=== PATIENT | female | born 1930 | race Caucasian/White ===

== ENCOUNTER 2017-01-13 13:37 | Inpatient (IN) | payer OTHER ==
[~2017-01-13] VITALS: Ht 170.2 cm; Wt 65.0 kg
[~2017-01-13 13:37] MED LIST: ALPRAZOLAM0.25 MG PO; AMBIEN5 MG PO; ASPIRIN325 MG PO; Ambien PO; BETHANECHOL CHL25 MG PO; Bactrim,Septra DS 80 PO; CIPROFLOXACIN250 MG PO; DETROL LA4 MG PO; DUONEB 2.5-0.5 M3 ML AEROSOL; ENDOCET 10-3251 EACH PO; ENDOCET 5-3251 EACH PO; GLUCOPHAGE1000 MG PO; HEPARIN SO5000 UNITS SC; KLONOPIN0.5 M1 PO; LAXATIVE PEG 3510 GM PO; LISINOPRIL2.5 MG PO; LOPRESSOR25 MG PO; MAGIC MOUTHWASH1 ML MM; METFORMIN HCL1000 MG PO; METRONIDAZOLE500 MG PO; MIRALAX17 GM PO; NOVOLOG PE100 UNITS/ SC; OXYCODONE-APAP1 EACH PO; PERCOCET 10-321 EACH PO; PERCOCET 10/1 TABLET PO; PERCOCET 5/31 TABLET PO; POLYETHYLENE GL17 GM PO; TYLENOL REGULA325 MG PO; VITAMIN D250000 UNIT PO; XANAX0.5 MG PO; XANAX2 MG PO; Xanax PO; ZOFRAN4 MG PO
[2017-01-13 13:52] LABS: BASE EXCESS -4.6 mEq/L (-3 to +3); BICARBONATE 18.8 mEq/L (22-26); CARBOXY HGB 1.2 % (0-5); COMMENTS - BLOOD GASES A+C+; DEVICE NC; METHEMOGLOBIN 0.8 % (0-1.5); O2 FLOW 6 L/MIN; PCO2 29 mm Hg (35-45); PO2 39 mm Hg (80-100); SITE LR; pH 7.42 (7.35-7.45)
[2017-01-13 14:39] LABS: BASE EXCESS -5.4 mEq/L (-3 to +3); BICARBONATE 18.9 mEq/L (22-26); CARBOXY HGB 1.2 % (0-5); COMMENTS - BLOOD GASES A+C+; DEVICE NRBM; METHEMOGLOBIN 0.8 % (0-1.5); O2 FLOW 15 L/MIN; PCO2 32 mm Hg (35-45); PO2 71 mm Hg (80-100); SITE LR; pH 7.38 (7.35-7.45)
[2017-01-13 14:40] LABS: TOTAL RESP RATE 14 resp/min
[2017-01-13 14:52] LABS: ADD MIUA? NO; BILIRUBIN NEGATIVE; BLOOD NEGATIVE; COLOR YELLOW ((YELLOW)); GLUCOSE (STRIP) NEGATIVE; KETONES NEGATIVE; LEUKOCYTES NEGATIVE; NITRITE NEGATIVE; PROTEIN (STRIP) NEGATIVE; SPECIFIC GRAVITY 1.008 (1.000-1.030); UROBILINOGEN 0.2 MG/DL (0.2-1.0)
[2017-01-13 15:00] LABS: AMPHETAMINE NEGATIVE (500 ng/mL); BARBITURATES NEGATIVE (200 ng/mL); BENZODIAZEPINES PRESUMPTIVE POSITIVE (150 ng/mL); COCAINE NEGATIVE (150 ng/mL); INTERNAL CONTROLS VALID? YES; METHADONE NEGATIVE (200 ng/mL); METHAMPHETAMINE NEGATIVE (500 ng/mL); OPIATES (MORPHINE) PRESUMPTIVE POSITIVE (100 ng/mL); OXYCODONE PRESUMPTIVE POSITIVE (100 ng/mL); PHENCYCLIDINE NEGATIVE (25 ng/mL); PROPOXYPHENE NEGATIVE (300 ng/mL); THC CANNABINOIDS NEGATIVE (50 ng/mL); TRICYCLIC ANTIDEPRESSANTS PRESUMPTIVE POSITIVE (300 ng/mL)
[2017-01-13 15:01] LABS: ADD MEDTOX COMMENT Y
[2017-01-13 15:22] LABS: HEMATOCRIT 32.8 % (36.0-46.0); MCHC 31.4 G/DL (30.0-36.0); MCV 95.6 FL (83-99); RBC DIS.WIDTH-SD 49.6 % (39-53); RED BLOOD COUNT 3.43 M/uL (3.80-5.20); WHITE BLOOD COUNT 3.4 K/uL (4.1-10.2)
[2017-01-13 15:22] LABS: BENZODIAZEPINES, URINE SCREEN POSITIVE (200 ng/mL)
[2017-01-13 15:26] LABS: CHLORIDE 108 mEq/L (99-109); INTER. NORMALIZED RATIO 1.2; POTASSIUM 3.9 mEq/L (3.7-5.4); PROTHROMBIN TIME 12.3 (9.2-11.2); PTT 33.1 (25-32); SODIUM 142 mEq/L (136-147)
[2017-01-13 15:27] LABS: MAGNESIUM 1.1 mg/dL (1.3-2.7)
[2017-01-13 15:28] LABS: GLUCOSE 172 mg/dL (70-99)
[2017-01-13 15:30] LABS: ANION GAP 14 MEQ/L (2-14)
[2017-01-13 15:31] LABS: SERUM ETHYL ALCOHOL < 10 mg/dL
[2017-01-13 15:32] LABS: GFR ESTIMATE (CALCULATED) 30 mL/min/
[2017-01-13 15:34] LABS: UREA NITROGEN (BUN) 23 mg/dL (9-23)
[2017-01-13 15:35] LABS: SALICYLATE < 5.0 MG/DL (15-30)
[2017-01-13 15:37] LABS: TROP-I INTERPRETATION NEGATIVE; TROPONIN-I 0.08 ng/mL (0.0-0.30)
[2017-01-13] MEDS ORDERED: AMBIEN5 MG PO (16:09)
[2017-01-13] MEDS ORDERED: COZAAR100 MG PO (16:10)
[2017-01-13] MEDS ORDERED: REMERON30 M2 PO (16:10)
[2017-01-13 16:25] LABS: MEAN PLAT.VOLUME ND uM^3 (9.5-12.4); PLATELET COUNT ND K/uL (156-360)
[2017-01-13 16:34] LABS: ABS NEUTROPHIL COUNT 2.8; ANISOCYTOSIS 1+; BAND NEUTROPHILS 58.4 % (0-8.0); BASOPHILS 0.9 %; EOSINOPHIL ABS CT 0; HYPOCHROMASIA 1+; INSTRUMENT ABS NEUTROPHIL CT 2.6 K/uL; METAMYELOCYTES 3.5 %; PLATELET CLUMPS PRESENT - PLATELET COUNT APPEARS ADQ.; SEG.NEUTROPHILS 23.9 % (46.0-76.0); SMUDGE CELLS 8.8
[2017-01-13 18:20] VITALS: BP 109/64
[2017-01-13 19:00] VITALS: BP 102/58
[2017-01-13 20:00] VITALS: BP 109/60
[2017-01-13 20:06] LABS: METH RESISTANT S AUREUS PCR NEGATIVE (NEGATIVE)
[2017-01-13 20:11] LABS: PROBE CHECK PASS; SPECIMEN PROCESSING CONTROL PASS
[2017-01-13 21:00] VITALS: BP 134/70
[2017-01-13 22:00] VITALS: BP 119/68
[2017-01-13 23:00] VITALS: BP 104/50
[2017-01-14] VITALS (12 sets, daily range): BP systolic 76–127; BP diastolic 40–59
[2017-01-14 05:38] LABS: MCH 30.3 PG (29.0-34.0); MCV 94.6 FL (83-99); PLATELET COUNT 124 K/uL (156-360); RBC DIS.WIDTH-CV 14.3 % (11.8-14.6); RBC DIS.WIDTH-SD 49.8 % (39-53); RED BLOOD COUNT 3.17 M/uL (3.80-5.20); WHITE BLOOD COUNT 6.7 K/uL (4.1-10.2)
[2017-01-14 05:45] LABS: INTER. NORMALIZED RATIO 1.6; PROTHROMBIN TIME 16.2 (9.2-11.2)
[2017-01-14 06:07] LABS: ALKALINE PHOSPHATASE 55 IU/L (3-129); ANION GAP 10 MEQ/L (2-14); CHLORIDE 113 MEQ/L (99-109); GFR ESTIMATE (CALCULATED) 41 mL/min/; POTASSIUM 4.3 MEQ/L (3.7-5.4); SAMPLE HEMOLYSIS CHECK 0; SAMPLE ICTERIC CHECK 0; SAMPLE LIPEMIA CHECK 0; SODIUM 142 MEQ/L (136-147); TOTAL BILIRUBIN 0.5 MG/DL (0.0-1.0); UREA NITROGEN (BUN) 26 mg/dL (9-23)
[2017-01-14 06:09] LABS: GLUCOSE 107 mg/dL (70-99)
[2017-01-15] VITALS: BP 113/56
[2017-01-15 04:00] VITALS: BP 94/53
[2017-01-15 08:00] VITALS: BP 109/57
[2017-01-15 11:36] LABS: HEMATOCRIT 33.2 % (36.0-46.0); MCH 30.2 PG (29.0-34.0); MCHC 32.2 G/DL (30.0-36.0); MCV 93.8 FL (83-99); MEAN PLAT.VOLUME 11.6 uM^3 (9.5-12.4); PLATELET COUNT 114 K/uL (156-360); RBC DIS.WIDTH-CV 14.8 % (11.8-14.6); RBC DIS.WIDTH-SD 51.7 % (39-53); RED BLOOD COUNT 3.54 M/uL (3.80-5.20); WHITE BLOOD COUNT 18.1 K/uL (4.1-10.2)
[2017-01-15 11:50] LABS: C DIFF TOXIN POSITIVE (NEGATIVE)
[2017-01-15 11:52] LABS: ANION GAP 12 MEQ/L (2-14); CHLORIDE 114 MEQ/L (99-109); MAGNESIUM 2.1 mg/dl (1.3-2.7); POTASSIUM 3.5 MEQ/L (3.7-5.4); SAMPLE HEMOLYSIS CHECK 0; SAMPLE ICTERIC CHECK 0; SAMPLE LIPEMIA CHECK 0; SODIUM 143 MEQ/L (136-147)
[2017-01-15 11:58] LABS: GFR ESTIMATE (CALCULATED) > 59 mL/min/; GLUCOSE 145 mg/dL (70-99); UREA NITROGEN (BUN) 20 mg/dL (9-23)
[2017-01-15 11:59] LABS: PROBE CHECK PASS; SPECIMEN PROCESSING CONTROL PASS
[2017-01-15 12:00] VITALS: BP 121/62
[2017-01-15 13:00] VITALS: BP 121/62
[2017-01-15 13:08] LABS: ABS NEUTROPHIL COUNT 16.6; ANISOCYTOSIS 1+; BASOPHILS 0.9 %; BURR CELLS 1+; EOSINOPHIL ABS CT 0; INSTRUMENT ABS NEUTROPHIL CT 16.9 K/uL; LYMPHOCYTES 1.8 % (15.0-45.0); PLAT.SUFFICIENCY DECREASED; POIKILOCYTOSIS 2+; TEAR DROP CELLS 1+
[2017-01-15 13:20] LABS: BAND NEUTROPHILS 13.6 % (0-8.0); SEG.NEUTROPHILS 78.2 % (46.0-76.0)
[2017-01-15 16:00] VITALS: BP 126/69
[2017-01-16] VITALS (14 sets, daily range): BP systolic 125–162; BP diastolic 62–80
[2017-01-16 05:56] LABS: HEMATOCRIT 28.2 % (36.0-46.0); MCHC 34.4 G/DL (30.0-36.0); MCV 90.1 FL (83-99); MEAN PLAT.VOLUME 12.2 uM^3 (9.5-12.4); NRBC (%) 0.2 /100 WBC (0-0); PLATELET COUNT 110 K/uL (156-360); RBC DIS.WIDTH-CV 14.9 % (11.8-14.6); RBC DIS.WIDTH-SD 48.6 % (39-53); RED BLOOD COUNT 3.13 M/uL (3.80-5.20); WHITE BLOOD COUNT 13.8 K/uL (4.1-10.2)
[2017-01-16 06:29] LABS: ANION GAP 10 MEQ/L (2-14); CHLORIDE 114 MEQ/L (99-109); GFR ESTIMATE (CALCULATED) > 59 mL/min/; GLUCOSE 388 mg/dL (70-99); MAGNESIUM 1.9 mg/dl (1.3-2.7); POTASSIUM 3.4 MEQ/L (3.7-5.4); SAMPLE HEMOLYSIS CHECK 0; SAMPLE ICTERIC CHECK 0; SAMPLE LIPEMIA CHECK 0; SODIUM 140 MEQ/L (136-147); UREA NITROGEN (BUN) 25 mg/dL (9-23)
[2017-01-16 07:04] LABS: EOSINOPHIL (%) 0.1 % (0-5); IMMATURE GRANULOCYTE COUNT 0.1 K/uL; INSTRUMENT ABS NEUTROPHIL CT 12.5 K/uL; LYMPHOCYTE COUNT 0.4 K/uL (1.0-2.8); MONOCYTE (%) 5.2 % (3-12); MONOCYTE COUNT 0.7 K/uL (0-0.8); NEUTROPHIL (%) 90.6 % (45-76); NEUTROPHIL COUNT 12.5 K/uL (1.8-6.4)
[2017-01-16 22:02] LABS: POINT-OF-CARE METER ID UU14174217
[2017-01-17] VITALS (22 sets, daily range): BP systolic 104–161; BP diastolic 52–93
[2017-01-17 00:54] LABS: POINT-OF-CARE METER ID UU14174217
[2017-01-17 05:54] LABS: ANION GAP 12 MEQ/L (2-14); CHLORIDE 111 MEQ/L (99-109); GFR ESTIMATE (CALCULATED) > 59 mL/min/; GLUCOSE 249 mg/dL (70-99); MAGNESIUM 1.9 mg/dl (1.3-2.7); POTASSIUM 2.9 MEQ/L (3.7-5.4); SAMPLE HEMOLYSIS CHECK 0; SAMPLE ICTERIC CHECK 0; SAMPLE LIPEMIA CHECK 0; SODIUM 144 MEQ/L (136-147); UREA NITROGEN (BUN) 26 mg/dL (9-23)
[2017-01-17 05:56] LABS: HEMATOCRIT 30.7 % (36.0-46.0); MCH 29.7 PG (29.0-34.0); MCHC 33.2 G/DL (30.0-36.0); MCV 89.2 FL (83-99); NRBC (%) 0.1 /100 WBC (0-0); RBC DIS.WIDTH-CV 14.6 % (11.8-14.6); RED BLOOD COUNT 3.44 M/uL (3.80-5.20); WHITE BLOOD COUNT 20.5 K/uL (4.1-10.2)
[2017-01-17 06:13] LABS: POINT-OF-CARE METER ID UU13113803
[2017-01-17 07:34] LABS: ABS NEUTROPHIL COUNT 19.5; ANISOCYTOSIS 1+; ATYPICAL LYMPHOCYTE 1.3 %; BAND NEUTROPHILS 5.3 % (0-8.0); EOSINOPHIL ABS CT 0.1; EOSINOPHILS 0.5 % (0-5.0); INSTRUMENT ABS NEUTROPHIL CT 17.6 K/uL; LYMPHOCYTES 1.3 % (15.0-45.0); MACROCYTES 1+; MEAN PLAT.VOLUME 11.8 uM^3 (9.5-12.4); NUCLEATED RBC'S 0.4; PLAT.SUFFICIENCY DECREASED; PLATELET COUNT 115 K/uL (156-360); SEG.NEUTROPHILS 89.8 % (46.0-76.0)
[2017-01-17 07:38] LABS: HDL CHOLESTEROL 13 MG/DL (Desirable>=50); LDL CHOLESTEROL 30 mg/dL (Desirable<100); NON-HDL CHOLESTEROL 61 mg/dL (Desirable<160); TOTAL CHOLESTEROL 74 mg/dL (Desirable<200); TRIGLYCERIDES 157 MG/DL (Normal: <150)
[2017-01-17 09:31] LABS: Estimated Average Glucose 146 mg/dL (70-123); HEMOGLOBIN A1c (GLYCOHEMOGLOB) 6.7 % HGB (Below 5.7)
[2017-01-17 23:37] LABS: CHLORIDE 110 mEq/L (99-109); POTASSIUM 3.4 mEq/L (3.7-5.4); SODIUM 141 mEq/L (136-147)
[2017-01-17 23:39] LABS: GLUCOSE 193 mg/dL (70-99)
[2017-01-17 23:41] LABS: ANION GAP 8 MEQ/L (2-14)
[2017-01-17 23:43] LABS: GFR ESTIMATE (CALCULATED) > 59 mL/min/
[2017-01-17 23:44] LABS: UREA NITROGEN (BUN) 24 mg/dL (9-23)
[2017-01-18] VITALS (23 sets, daily range): BP systolic 112–169; BP diastolic 57–88
[2017-01-18 00:22] LABS: POINT-OF-CARE METER ID UU14174217
[2017-01-18 06:21] LABS: POINT-OF-CARE METER ID UU13113748
[2017-01-18 06:43] LABS: HEMATOCRIT 27.9 % (36.0-46.0); MCH 29.9 PG (29.0-34.0); MCHC 33.7 G/DL (30.0-36.0); MCV 88.9 FL (83-99); MEAN PLAT.VOLUME 12.3 uM^3 (9.5-12.4); PLATELET COUNT 90 K/uL (156-360); RBC DIS.WIDTH-CV 14.9 % (11.8-14.6); RBC DIS.WIDTH-SD 48.8 % (39-53); RED BLOOD COUNT 3.14 M/uL (3.80-5.20); WHITE BLOOD COUNT 16.2 K/uL (4.1-10.2)
[2017-01-18 06:50] LABS: ANION GAP 12 MEQ/L (2-14); CHLORIDE 106 MEQ/L (99-109); GFR ESTIMATE (CALCULATED) > 59 mL/min/; GLUCOSE 250 mg/dL (70-99); POTASSIUM 3.2 MEQ/L (3.7-5.4); SAMPLE HEMOLYSIS CHECK 0; SAMPLE ICTERIC CHECK 0; SAMPLE LIPEMIA CHECK 0; SODIUM 141 MEQ/L (136-147); UREA NITROGEN (BUN) 25 mg/dL (9-23)
[2017-01-18 06:54] LABS: MAGNESIUM 1.6 mg/dl (1.3-2.7)
[2017-01-18 07:42] LABS: ABS NEUTROPHIL COUNT 15.1; ATYPICAL LYMPHOCYTE 1.7 %; BAND NEUTROPHILS 4.4 % (0-8.0); EOSINOPHIL ABS CT 0; INSTRUMENT ABS NEUTROPHIL CT 12.5 K/uL; LYMPHOCYTES 3.5 % (15.0-45.0); PLAT.SUFFICIENCY DECREASED; SEG.NEUTROPHILS 88.7 % (46.0-76.0)
[2017-01-18 13:01] LABS: POINT-OF-CARE METER ID UU13113731
[2017-01-18 18:01] LABS: POINT-OF-CARE METER ID UU13113731
[2017-01-19] VITALS (24 sets, daily range): BP systolic 119–159; BP diastolic 55–82
[2017-01-19 00:22] LABS: POINT-OF-CARE METER ID UU13113731
[2017-01-19 05:37] LABS: POINT-OF-CARE METER ID UU13113731
[2017-01-19 06:43] LABS: ANION GAP 9 MEQ/L (2-14); CHLORIDE 106 MEQ/L (99-109); GFR ESTIMATE (CALCULATED) > 59 mL/min/; GLUCOSE 144 mg/dL (70-99); POTASSIUM 3.5 MEQ/L (3.7-5.4); SAMPLE HEMOLYSIS CHECK 1; SAMPLE ICTERIC CHECK 0; SAMPLE LIPEMIA CHECK 0; SODIUM 140 MEQ/L (136-147); UREA NITROGEN (BUN) 20 mg/dL (9-23)
[2017-01-19 06:44] LABS: MAGNESIUM 2.1 mg/dl (1.3-2.7)
[2017-01-19 07:51] LABS: HEMATOCRIT 27.6 % (36.0-46.0); MCH 31.2 PG (29.0-34.0); MCHC 34.8 G/DL (30.0-36.0); MCV 89.6 FL (83-99); MEAN PLAT.VOLUME 12.1 uM^3 (9.5-12.4); PLATELET COUNT 97 K/uL (156-360); RBC DIS.WIDTH-SD 48.2 % (39-53); RED BLOOD COUNT 3.08 M/uL (3.80-5.20)
[2017-01-19 08:20] LABS: EOSINOPHIL COUNT 0.2 K/uL (0-0.3); HEMATOLOGY COMMENT 1 SMEAR COMPATIBLE; IMMATURE GRANULOCYTE (%) 2.3 % (0.0-0.7); IMMATURE GRANULOCYTE COUNT 0.5 K/uL; INSTRUMENT ABS NEUTROPHIL CT 17.4 K/uL; LYMPHOCYTE COUNT 1.6 K/uL (1.0-2.8); MONOCYTE (%) 6.1 % (3-12); MONOCYTE COUNT 1.3 K/uL (0-0.8); NEUTROPHIL (%) 82.8 % (45-76); NEUTROPHIL COUNT 17.4 K/uL (1.8-6.4); PLAT.SUFFICIENCY DECREASED
[2017-01-19 18:46] LABS: POINT-OF-CARE METER ID UU13113731
[2017-01-20] VITALS (24 sets, daily range): BP systolic 106–162; BP diastolic 50–98
[2017-01-20 00:38] LABS: POINT-OF-CARE METER ID UU13113731; POINT-OF-CARE USER ID RADDRS44
[2017-01-20 06:41] LABS: EOSINOPHIL (%) 1.7 % (0-5); EOSINOPHIL COUNT 0.3 K/uL (0-0.3); HEMATOCRIT 25.6 % (36.0-46.0); IMMATURE GRANULOCYTE (%) 2.9 % (0.0-0.7); IMMATURE GRANULOCYTE COUNT 0.5 K/uL; INSTRUMENT ABS NEUTROPHIL CT 13.3 K/uL; LYMPHOCYTE COUNT 1.1 K/uL (1.0-2.8); MCH 30.2 PG (29.0-34.0); MCHC 33.2 G/DL (30.0-36.0); MCV 91.1 FL (83-99); MEAN PLAT.VOLUME 11.5 uM^3 (9.5-12.4); MONOCYTE (%) 6.1 % (3-12); NEUTROPHIL (%) 82.3 % (45-76); NEUTROPHIL COUNT 13.3 K/uL (1.8-6.4); RBC DIS.WIDTH-CV 15.2 % (11.8-14.6); RBC DIS.WIDTH-SD 50.2 % (39-53); RED BLOOD COUNT 2.81 M/uL (3.80-5.20); WHITE BLOOD COUNT 16.2 K/uL (4.1-10.2)
[2017-01-20 06:42] LABS: PLATELET COUNT 152 K/uL (156-360)
[2017-01-20 06:47] LABS: ANION GAP 6 MEQ/L (2-14); CHLORIDE 106 MEQ/L (99-109); GFR ESTIMATE (CALCULATED) > 59 mL/min/; GLUCOSE 159 mg/dL (70-99); MAGNESIUM 1.8 mg/dl (1.3-2.7); POTASSIUM 3.6 MEQ/L (3.7-5.4); SAMPLE HEMOLYSIS CHECK 0; SAMPLE ICTERIC CHECK 0; SAMPLE LIPEMIA CHECK 0; SODIUM 140 MEQ/L (136-147); UREA NITROGEN (BUN) 20 mg/dL (9-23)
[2017-01-20 06:58] LABS: POINT-OF-CARE METER ID UU13113731; POINT-OF-CARE USER ID RADDRS44
[2017-01-20 10:46] LABS: BASE EXCESS 5.5 mEq/L (-3 to +3); BICARBONATE 28.6 mEq/L (22-26); CARBOXY HGB 1.4 % (0-5); COMMENTS - BLOOD GASES +C; DEVICE PB840; FI02 40 %; METHEMOGLOBIN 1.6 % (0-1.5); MODE SPONT; PCO2 35 mm Hg (35-45); PO2 79 mm Hg (80-100); SITE LR +A; pH 7.52 (7.35-7.45)
[2017-01-20 10:47] LABS: PEEP 5 CM/H20; PRES. SUPPORT 5 CM/H2O; TOTAL RESP RATE 37 resp/min
[2017-01-20 13:13] LABS: POINT-OF-CARE METER ID UU13113748
[2017-01-20 13:34] LABS: BICARBONATE 27.3 mEq/L (22-26); CARBOXY HGB 1.3 % (0-5); METHEMOGLOBIN 1.4 % (0-1.5); PCO2 35 mm Hg (35-45); PO2 81 mm Hg (80-100)
[2017-01-20 13:35] LABS: COMMENTS - BLOOD GASES +C; DEVICE PB840; FI02 40 %; MODE TUBE COMP; SITE LR +A
[2017-01-20 13:36] LABS: CONTINUOUS POS AIRWAY PRESSURE 5 cm H2O; TOTAL RESP RATE 38 resp/min
[2017-01-20 18:44] LABS: POINT-OF-CARE METER ID UU13113748
[2017-01-20 19:02] LABS: POINT-OF-CARE METER ID UU13113748
[2017-01-21] VITALS (20 sets, daily range): BP systolic 116–168; BP diastolic 62–93
[2017-01-21 01:08] LABS: POINT-OF-CARE METER ID UU13113803
[2017-01-21 06:04] LABS: POINT-OF-CARE METER ID UU13113731; POINT-OF-CARE USER ID RADDRS44
[2017-01-21 06:08] LABS: EOSINOPHIL (%) 1.4 % (0-5); EOSINOPHIL COUNT 0.2 K/uL (0-0.3); HEMATOCRIT 28.4 % (36.0-46.0); IMMATURE GRANULOCYTE COUNT 0.3 K/uL; INSTRUMENT ABS NEUTROPHIL CT 13.5 K/uL; MCH 30.4 PG (29.0-34.0); MCHC 33.5 G/DL (30.0-36.0); MCV 90.7 FL (83-99); MEAN PLAT.VOLUME 11.7 uM^3 (9.5-12.4); MONOCYTE (%) 7.5 % (3-12); MONOCYTE COUNT 1.2 K/uL (0-0.8); NEUTROPHIL (%) 82.6 % (45-76); NEUTROPHIL COUNT 13.5 K/uL (1.8-6.4); RBC DIS.WIDTH-CV 15.3 % (11.8-14.6); RBC DIS.WIDTH-SD 49.9 % (39-53); RED BLOOD COUNT 3.13 M/uL (3.80-5.20); WHITE BLOOD COUNT 16.3 K/uL (4.1-10.2)
[2017-01-21 06:09] LABS: PLATELET COUNT 240 K/uL (156-360)
[2017-01-21 06:19] LABS: ANION GAP 6 MEQ/L (2-14); CHLORIDE 103 MEQ/L (99-109); GFR ESTIMATE (CALCULATED) > 59 mL/min/; GLUCOSE 188 mg/dL (70-99); MAGNESIUM 1.9 mg/dl (1.3-2.7); POTASSIUM 3.7 MEQ/L (3.7-5.4); SAMPLE HEMOLYSIS CHECK 0; SAMPLE ICTERIC CHECK 0; SAMPLE LIPEMIA CHECK 0; SODIUM 136 MEQ/L (136-147); UREA NITROGEN (BUN) 16 mg/dL (9-23)
[2017-01-21 11:50] LABS: POINT-OF-CARE METER ID UU13113731
[2017-01-21 18:16] LABS: POINT-OF-CARE METER ID UU13113803
[2017-01-21 23:24] LABS: POINT-OF-CARE METER ID UU13113803
[2017-01-22] VITALS (15 sets, daily range): BP systolic 106–159; BP diastolic 48–106
[2017-01-22 06:48] LABS: EOSINOPHIL (%) 0.7 % (0-5); EOSINOPHIL COUNT 0.1 K/uL (0-0.3); HEMATOCRIT 28.4 % (36.0-46.0); IMMATURE GRANULOCYTE (%) 1.9 % (0.0-0.7); IMMATURE GRANULOCYTE COUNT 0.4 K/uL; INSTRUMENT ABS NEUTROPHIL CT 15.9 K/uL; LYMPHOCYTE COUNT 0.8 K/uL (1.0-2.8); MCH 29.9 PG (29.0-34.0); MCHC 33.1 G/DL (30.0-36.0); MCV 90.4 FL (83-99); MEAN PLAT.VOLUME 11.2 uM^3 (9.5-12.4); MONOCYTE (%) 7.6 % (3-12); MONOCYTE COUNT 1.4 K/uL (0-0.8); NEUTROPHIL (%) 85.3 % (45-76); NEUTROPHIL COUNT 15.9 K/uL (1.8-6.4); RBC DIS.WIDTH-SD 48.9 % (39-53); RED BLOOD COUNT 3.14 M/uL (3.80-5.20); WHITE BLOOD COUNT 18.7 K/uL (4.1-10.2)
[2017-01-22 06:49] LABS: PLATELET COUNT 324 K/uL (156-360)
[2017-01-22 06:59] LABS: ANION GAP 8 MEQ/L (2-14); CHLORIDE 101 MEQ/L (99-109); GFR ESTIMATE (CALCULATED) > 59 mL/min/; GLUCOSE 161 mg/dL (70-99); MAGNESIUM 1.8 mg/dl (1.3-2.7); POTASSIUM 3.6 MEQ/L (3.7-5.4); SAMPLE HEMOLYSIS CHECK 0; SAMPLE ICTERIC CHECK 0; SAMPLE LIPEMIA CHECK 0; SODIUM 138 MEQ/L (136-147); UREA NITROGEN (BUN) 11 mg/dL (9-23)
[2017-01-22 08:35] LABS: POINT-OF-CARE METER ID UU13113803
[2017-01-22 12:41] LABS: POINT-OF-CARE METER ID UU13113803
[2017-01-22 18:16] LABS: POINT-OF-CARE METER ID UU13113803
[2017-01-22 23:32] LABS: POINT-OF-CARE METER ID UU13113803
[2017-01-23] VITALS: BP 114/48
[2017-01-23 04:00] VITALS: BP 133/67
[2017-01-23 06:09] LABS: EOSINOPHIL (%) 0.8 % (0-5); EOSINOPHIL COUNT 0.1 K/uL (0-0.3); HEMATOCRIT 28.2 % (36.0-46.0); IMMATURE GRANULOCYTE (%) 1.2 % (0.0-0.7); IMMATURE GRANULOCYTE COUNT 0.2 K/uL; INSTRUMENT ABS NEUTROPHIL CT 13.7 K/uL; MCH 29.9 PG (29.0-34.0); MCHC 32.6 G/DL (30.0-36.0); MCV 91.6 FL (83-99); MEAN PLAT.VOLUME 11.2 uM^3 (9.5-12.4); MONOCYTE COUNT 1.3 K/uL (0-0.8); NEUTROPHIL (%) 83.7 % (45-76); NEUTROPHIL COUNT 13.7 K/uL (1.8-6.4); PLATELET COUNT 396 K/uL (156-360); RBC DIS.WIDTH-CV 15.5 % (11.8-14.6); RBC DIS.WIDTH-SD 51.5 % (39-53); RED BLOOD COUNT 3.08 M/uL (3.80-5.20); WHITE BLOOD COUNT 16.3 K/uL (4.1-10.2)
[2017-01-23 06:35] LABS: ANION GAP 7 MEQ/L (2-14); CHLORIDE 100 MEQ/L (99-109); GFR ESTIMATE (CALCULATED) > 59 mL/min/; MAGNESIUM 1.8 mg/dl (1.3-2.7); POTASSIUM 3.9 MEQ/L (3.7-5.4); SAMPLE HEMOLYSIS CHECK 0; SAMPLE ICTERIC CHECK 0; SAMPLE LIPEMIA CHECK 0; SODIUM 136 MEQ/L (136-147); UREA NITROGEN (BUN) 11 mg/dL (9-23)
[2017-01-23 06:38] LABS: GLUCOSE 116 mg/dL (70-99)
[2017-01-23 08:00] VITALS: BP 120/56
[2017-01-23 10:00] VITALS: BP 118/67
[2017-01-23 12:00] VITALS: BP 122/65
[2017-01-23 12:40] LABS: POINT-OF-CARE METER ID UU13113731
[2017-01-23 15:31] LABS: POINT-OF-CARE METER ID UU13113731
[2017-01-23 20:00] VITALS: BP 114/67
[2017-01-24] VITALS (7 sets, daily range): BP systolic 123–142; BP diastolic 60–86
[2017-01-24 06:44] LABS: EOSINOPHIL (%) 1.2 % (0-5); EOSINOPHIL COUNT 0.2 K/uL (0-0.3); HEMATOCRIT 30.8 % (36.0-46.0); IMMATURE GRANULOCYTE (%) 0.9 % (0.0-0.7); IMMATURE GRANULOCYTE COUNT 0.2 K/uL; INSTRUMENT ABS NEUTROPHIL CT 16.6 K/uL; MCH 30.3 PG (29.0-34.0); MCHC 33.1 G/DL (30.0-36.0); MCV 91.4 FL (83-99); MEAN PLAT.VOLUME 10.8 uM^3 (9.5-12.4); MONOCYTE (%) 7.5 % (3-12); MONOCYTE COUNT 1.5 K/uL (0-0.8); NEUTROPHIL (%) 85.4 % (45-76); NEUTROPHIL COUNT 16.6 K/uL (1.8-6.4); RBC DIS.WIDTH-CV 15.4 % (11.8-14.6); RBC DIS.WIDTH-SD 50.7 % (39-53); RED BLOOD COUNT 3.37 M/uL (3.80-5.20); WHITE BLOOD COUNT 19.5 K/uL (4.1-10.2)
[2017-01-24 06:46] LABS: PLATELET COUNT 522 K/uL (156-360)
[2017-01-24 07:20] LABS: ANION GAP 10 MEQ/L (2-14); CHLORIDE 100 MEQ/L (99-109); GFR ESTIMATE (CALCULATED) > 59 mL/min/; GLUCOSE 142 mg/dL (70-99); MAGNESIUM 1.6 mg/dl (1.3-2.7); SAMPLE HEMOLYSIS CHECK 0; SAMPLE ICTERIC CHECK 0; SAMPLE LIPEMIA CHECK 0; SODIUM 135 MEQ/L (136-147); UREA NITROGEN (BUN) 11 mg/dL (9-23)
[2017-01-24 16:38] LABS: POINT-OF-CARE METER ID UU13113717
[2017-01-25 03:37] VITALS: BP 127/78
[2017-01-25 06:47] LABS: EOSINOPHIL (%) 0.8 % (0-5); EOSINOPHIL COUNT 0.1 K/uL (0-0.3); HEMATOCRIT 31.5 % (36.0-46.0); IMMATURE GRANULOCYTE COUNT 0.2 K/uL; INSTRUMENT ABS NEUTROPHIL CT 14.9 K/uL; LYMPHOCYTE COUNT 0.9 K/uL (1.0-2.8); MCH 30.4 PG (29.0-34.0); MCV 92.1 FL (83-99); MEAN PLAT.VOLUME 10.2 uM^3 (9.5-12.4); MONOCYTE (%) 6.9 % (3-12); MONOCYTE COUNT 1.2 K/uL (0-0.8); NEUTROPHIL (%) 86.2 % (45-76); NEUTROPHIL COUNT 14.9 K/uL (1.8-6.4); PLATELET COUNT 564 K/uL (156-360); RBC DIS.WIDTH-CV 15.3 % (11.8-14.6); RED BLOOD COUNT 3.42 M/uL (3.80-5.20); WHITE BLOOD COUNT 17.3 K/uL (4.1-10.2)
[2017-01-25 07:17] LABS: ANION GAP 9 MEQ/L (2-14); CHLORIDE 98 MEQ/L (99-109); GFR ESTIMATE (CALCULATED) > 59 mL/min/; GLUCOSE 167 mg/dL (70-99); MAGNESIUM 1.7 mg/dl (1.3-2.7); POTASSIUM 3.7 MEQ/L (3.7-5.4); SAMPLE HEMOLYSIS CHECK 0; SAMPLE ICTERIC CHECK 0; SAMPLE LIPEMIA CHECK 0; SODIUM 135 MEQ/L (136-147); UREA NITROGEN (BUN) 9 mg/dL (9-23)
[2017-01-25 07:48] LABS: POINT-OF-CARE METER ID UU13113717
[2017-01-25 07:51] VITALS: BP 191/80
[2017-01-25 11:16] VITALS: BP 168/82
[2017-01-25 11:20] LABS: POINT-OF-CARE METER ID UU13113717
[2017-01-25 16:41] LABS: POINT-OF-CARE METER ID UU14174225
[2017-01-25 19:44] VITALS: BP 133/77
[2017-01-26] VITALS (7 sets, daily range): BP systolic 119–168; BP diastolic 74–92
[2017-01-26 08:14] LABS: EOSINOPHIL (%) 0.5 % (0-5); EOSINOPHIL COUNT 0.1 K/uL (0-0.3); HEMATOCRIT 30.8 % (36.0-46.0); IMMATURE GRANULOCYTE (%) 0.9 % (0.0-0.7); IMMATURE GRANULOCYTE COUNT 0.1 K/uL; INSTRUMENT ABS NEUTROPHIL CT 14.4 K/uL; LYMPHOCYTE COUNT 0.8 K/uL (1.0-2.8); MCH 29.8 PG (29.0-34.0); MCHC 32.5 G/DL (30.0-36.0); MCV 91.7 FL (83-99); MEAN PLAT.VOLUME 9.9 uM^3 (9.5-12.4); MONOCYTE (%) 6.4 % (3-12); MONOCYTE COUNT 1.1 K/uL (0-0.8); NEUTROPHIL (%) 87.3 % (45-76); NEUTROPHIL COUNT 14.4 K/uL (1.8-6.4); PLATELET COUNT 634 K/uL (156-360); RBC DIS.WIDTH-SD 50.4 % (39-53); RED BLOOD COUNT 3.36 M/uL (3.80-5.20); WHITE BLOOD COUNT 16.5 K/uL (4.1-10.2)
[2017-01-26 08:39] LABS: ANION GAP 10 MEQ/L (2-14); CHLORIDE 97 MEQ/L (99-109); GFR ESTIMATE (CALCULATED) > 59 mL/min/; GLUCOSE 159 mg/dL (70-99); MAGNESIUM 1.5 mg/dl (1.3-2.7); POTASSIUM 3.4 MEQ/L (3.7-5.4); SAMPLE HEMOLYSIS CHECK 0; SAMPLE ICTERIC CHECK 0; SAMPLE LIPEMIA CHECK 0; SODIUM 135 MEQ/L (136-147); UREA NITROGEN (BUN) 8 mg/dL (9-23)
[2017-01-27 03:29] VITALS: BP 138/80
[2017-01-27 07:49] LABS: POINT-OF-CARE METER ID UU14174225
[2017-01-27 07:51] VITALS: BP 119/58
[2017-01-27 09:40] LABS: EOSINOPHIL COUNT 0.2 K/uL (0-0.3); HEMATOCRIT 31.2 % (36.0-46.0); IMMATURE GRANULOCYTE (%) 0.7 % (0.0-0.7); IMMATURE GRANULOCYTE COUNT 0.1 K/uL; MCH 30.4 PG (29.0-34.0); MCHC 32.7 G/DL (30.0-36.0); MCV 92.9 FL (83-99); MEAN PLAT.VOLUME 11.1 uM^3 (9.5-12.4); MONOCYTE (%) 6.7 % (3-12); NEUTROPHIL (%) 85.1 % (45-76); NRBC (%) 0.3 /100 WBC (0-0); PLATELET COUNT 598 K/uL (156-360); RBC DIS.WIDTH-CV 15.3 % (11.8-14.6); RBC DIS.WIDTH-SD 51.7 % (39-53); RED BLOOD COUNT 3.36 M/uL (3.80-5.20); WHITE BLOOD COUNT 15.3 K/uL (4.1-10.2)
[2017-01-27 09:59] LABS: ANION GAP 11 MEQ/L (2-14); CHLORIDE 99 MEQ/L (99-109); MAGNESIUM 1.6 mg/dl (1.3-2.7); POTASSIUM 3.9 MEQ/L (3.7-5.4); SAMPLE HEMOLYSIS CHECK 0; SAMPLE ICTERIC CHECK 0; SAMPLE LIPEMIA CHECK 0; SODIUM 136 MEQ/L (136-147)
[2017-01-27 10:06] LABS: GFR ESTIMATE (CALCULATED) > 59 mL/min/; GLUCOSE 144 mg/dL (70-99); UREA NITROGEN (BUN) 10 mg/dL (9-23)
[2017-01-27 18:10] LABS: POINT-OF-CARE METER ID UU13113717
[2017-01-27 22:04] LABS: POINT-OF-CARE METER ID UU14174225
[2017-01-27 23:27] VITALS: BP 135/64
[2017-01-28 05:27] LABS: BASOPHIL COUNT 0.1 K/uL (0-0.1); EOSINOPHIL (%) 1.5 % (0-5); EOSINOPHIL COUNT 0.2 K/uL (0-0.3); HEMATOCRIT 26.5 % (36.0-46.0); IMMATURE GRANULOCYTE (%) 0.8 % (0.0-0.7); IMMATURE GRANULOCYTE COUNT 0.1 K/uL; INSTRUMENT ABS NEUTROPHIL CT 12.8 K/uL; LYMPHOCYTE COUNT 1.2 K/uL (1.0-2.8); MCH 29.9 PG (29.0-34.0); MCHC 31.7 G/DL (30.0-36.0); MCV 94.3 FL (83-99); MEAN PLAT.VOLUME 9.7 uM^3 (9.5-12.4); MONOCYTE (%) 9.2 % (3-12); MONOCYTE COUNT 1.5 K/uL (0-0.8); NEUTROPHIL (%) 80.8 % (45-76); NEUTROPHIL COUNT 12.8 K/uL (1.8-6.4); PLATELET COUNT 520 K/uL (156-360); RBC DIS.WIDTH-CV 15.2 % (11.8-14.6); RBC DIS.WIDTH-SD 52.5 % (39-53); RED BLOOD COUNT 2.81 M/uL (3.80-5.20); WHITE BLOOD COUNT 15.8 K/uL (4.1-10.2)
[2017-01-28 06:07] LABS: ANION GAP 7 MEQ/L (2-14); CHLORIDE 102 MEQ/L (99-109); GFR ESTIMATE (CALCULATED) > 59 mL/min/; POTASSIUM 4.4 MEQ/L (3.7-5.4); SAMPLE HEMOLYSIS CHECK 0; SAMPLE ICTERIC CHECK 0; SAMPLE LIPEMIA CHECK 0; SODIUM 139 MEQ/L (136-147); UREA NITROGEN (BUN) 16 mg/dL (9-23)
[2017-01-28 06:40] LABS: GLUCOSE 103 mg/dL (70-99); MAGNESIUM 1.9 mg/dl (1.3-2.7)
[2017-01-28 08:03] VITALS: BP 128/66
[2017-01-28 12:53] LABS: POINT-OF-CARE METER ID UU14174225
[2017-01-28 15:47] VITALS: BP 126/62
[2017-01-28 17:42] LABS: POINT-OF-CARE METER ID UU14174225
[2017-01-28 21:36] LABS: POINT-OF-CARE METER ID UU14174225
[2017-01-29 00:04] VITALS: BP 138/70
[2017-01-29 05:53] LABS: BASOPHIL COUNT 0.1 K/uL (0-0.1); EOSINOPHIL (%) 0.6 % (0-5); EOSINOPHIL COUNT 0.1 K/uL (0-0.3); HEMATOCRIT 29.1 % (36.0-46.0); IMMATURE GRANULOCYTE (%) 0.9 % (0.0-0.7); IMMATURE GRANULOCYTE COUNT 0.1 K/uL; INSTRUMENT ABS NEUTROPHIL CT 13.3 K/uL; LYMPHOCYTE COUNT 0.9 K/uL (1.0-2.8); MCH 29.6 PG (29.0-34.0); MCHC 31.6 G/DL (30.0-36.0); MCV 93.6 FL (83-99); MEAN PLAT.VOLUME 9.5 uM^3 (9.5-12.4); MONOCYTE COUNT 1.3 K/uL (0-0.8); NEUTROPHIL (%) 84.6 % (45-76); NEUTROPHIL COUNT 13.3 K/uL (1.8-6.4); PLATELET COUNT 542 K/uL (156-360); RBC DIS.WIDTH-SD 50.8 % (39-53); RED BLOOD COUNT 3.11 M/uL (3.80-5.20); WHITE BLOOD COUNT 15.8 K/uL (4.1-10.2)
[2017-01-29 06:41] LABS: ANION GAP 7 MEQ/L (2-14); CHLORIDE 102 MEQ/L (99-109); GFR ESTIMATE (CALCULATED) > 59 mL/min/; MAGNESIUM 1.8 mg/dl (1.3-2.7); POTASSIUM 4.4 MEQ/L (3.7-5.4); SAMPLE HEMOLYSIS CHECK 0; SAMPLE ICTERIC CHECK 0; SAMPLE LIPEMIA CHECK 0; SODIUM 140 MEQ/L (136-147); UREA NITROGEN (BUN) 13 mg/dL (9-23)
[2017-01-29 06:45] LABS: GLUCOSE 158 mg/dL (70-99)
[2017-01-29 07:59] VITALS: BP 138/70
[2017-01-29 15:48] VITALS: BP 148/82
[2017-01-29 23:31] VITALS: BP 142/64
[2017-01-30] VITALS (16 sets, daily range): BP systolic 106–164; BP diastolic 36–94
[2017-01-30 04:53] LABS: METH RESISTANT S AUREUS PCR NEGATIVE (NEGATIVE)
[2017-01-30 04:57] LABS: PROBE CHECK PASS; SPECIMEN PROCESSING CONTROL PASS
[2017-01-30 05:56] LABS: BASOPHIL COUNT 0.1 K/uL (0-0.1); EOSINOPHIL (%) 0.7 % (0-5); EOSINOPHIL COUNT 0.1 K/uL (0-0.3); HEMATOCRIT 25.4 % (36.0-46.0); IMMATURE GRANULOCYTE (%) 0.6 % (0.0-0.7); IMMATURE GRANULOCYTE COUNT 0.1 K/uL; INSTRUMENT ABS NEUTROPHIL CT 13.5 K/uL; MCH 30.4 PG (29.0-34.0); MCHC 32.7 G/DL (30.0-36.0); MONOCYTE (%) 8.7 % (3-12); MONOCYTE COUNT 1.4 K/uL (0-0.8); NEUTROPHIL (%) 83.3 % (45-76); NEUTROPHIL COUNT 13.5 K/uL (1.8-6.4); PLATELET COUNT 446 K/uL (156-360); RBC DIS.WIDTH-SD 51.1 % (39-53); RED BLOOD COUNT 2.73 M/uL (3.80-5.20); WHITE BLOOD COUNT 16.2 K/uL (4.1-10.2)
[2017-01-30 06:40] LABS: ANION GAP 6 MEQ/L (2-14); CHLORIDE 99 MEQ/L (99-109); GFR ESTIMATE (CALCULATED) > 59 mL/min/; GLUCOSE 135 mg/dL (70-99); POTASSIUM 4.5 MEQ/L (3.7-5.4); SAMPLE HEMOLYSIS CHECK 0; SAMPLE ICTERIC CHECK 0; SAMPLE LIPEMIA CHECK 0; SODIUM 135 MEQ/L (136-147); UREA NITROGEN (BUN) 13 mg/dL (9-23)
[2017-01-30 06:54] LABS: MAGNESIUM 1.5 mg/dl (1.3-2.7)
[2017-01-30 09:02] LABS: POINT-OF-CARE METER ID UU13113803
[2017-01-30 12:09] LABS: POINT-OF-CARE METER ID UU13113803
[2017-01-30 18:20] LABS: POINT-OF-CARE METER ID UU13113803
[2017-01-30 21:28] LABS: POINT-OF-CARE METER ID UU13113717
[2017-01-31 03:21] VITALS: BP 139/72
[2017-01-31 05:51] LABS: BASOPHIL COUNT 0.1 K/uL (0-0.1); EOSINOPHIL (%) 0.5 % (0-5); EOSINOPHIL COUNT 0.1 K/uL (0-0.3); HEMATOCRIT 26.7 % (36.0-46.0); IMMATURE GRANULOCYTE (%) 0.5 % (0.0-0.7); IMMATURE GRANULOCYTE COUNT 0.1 K/uL; INSTRUMENT ABS NEUTROPHIL CT 11.3 K/uL; LYMPHOCYTE COUNT 0.8 K/uL (1.0-2.8); MCH 29.6 PG (29.0-34.0); MCHC 32.6 G/DL (30.0-36.0); MCV 90.8 FL (83-99); MEAN PLAT.VOLUME 9.8 uM^3 (9.5-12.4); MONOCYTE COUNT 1.1 K/uL (0-0.8); NEUTROPHIL (%) 84.6 % (45-76); NEUTROPHIL COUNT 11.3 K/uL (1.8-6.4); PLATELET COUNT 457 K/uL (156-360); RBC DIS.WIDTH-CV 14.6 % (11.8-14.6); RED BLOOD COUNT 2.94 M/uL (3.80-5.20); WHITE BLOOD COUNT 13.3 K/uL (4.1-10.2)
[2017-01-31 06:10] LABS: ANION GAP 7 MEQ/L (2-14); CHLORIDE 98 MEQ/L (99-109); GFR ESTIMATE (CALCULATED) > 59 mL/min/; GLUCOSE 174 mg/dL (70-99); MAGNESIUM 1.4 mg/dl (1.3-2.7); POTASSIUM 4.2 MEQ/L (3.7-5.4); SAMPLE HEMOLYSIS CHECK 0; SAMPLE ICTERIC CHECK 0; SAMPLE LIPEMIA CHECK 0; SODIUM 136 MEQ/L (136-147); UREA NITROGEN (BUN) 12 mg/dL (9-23)
[2017-01-31 08:29] VITALS: BP 142/88
[2017-01-31 11:15] VITALS: BP 130/90
[2017-01-31 12:56] LABS: POINT-OF-CARE METER ID UU13113717
[2017-01-31 17:17] LABS: POINT-OF-CARE USER ID STWAMT
[2017-01-31 18:08] VITALS: BP 100/68
[2017-01-31 19:32] VITALS: BP 118/58
[2017-01-31 23:32] VITALS: BP 110/61
[2017-02-01 03:39] VITALS: BP 103/51
[2017-02-01 06:10] LABS: BASOPHIL COUNT 0.1 K/uL (0-0.1); EOSINOPHIL (%) 1.2 % (0-5); EOSINOPHIL COUNT 0.2 K/uL (0-0.3); HEMATOCRIT 26.1 % (36.0-46.0); IMMATURE GRANULOCYTE (%) 0.5 % (0.0-0.7); IMMATURE GRANULOCYTE COUNT 0.1 K/uL; INSTRUMENT ABS NEUTROPHIL CT 10.1 K/uL; LYMPHOCYTE COUNT 1.3 K/uL (1.0-2.8); MCH 30.5 PG (29.0-34.0); MCV 92.6 FL (83-99); MEAN PLAT.VOLUME 9.4 uM^3 (9.5-12.4); MONOCYTE (%) 9.8 % (3-12); MONOCYTE COUNT 1.3 K/uL (0-0.8); NEUTROPHIL (%) 77.8 % (45-76); NEUTROPHIL COUNT 10.1 K/uL (1.8-6.4); PLATELET COUNT 410 K/uL (156-360); RBC DIS.WIDTH-CV 14.6 % (11.8-14.6); RBC DIS.WIDTH-SD 49.4 % (39-53); RED BLOOD COUNT 2.82 M/uL (3.80-5.20)
[2017-02-01 06:52] LABS: ANION GAP 8 MEQ/L (2-14); CHLORIDE 101 MEQ/L (99-109); GFR ESTIMATE (CALCULATED) > 59 mL/min/; MAGNESIUM 1.5 mg/dl (1.3-2.7); POTASSIUM 3.8 MEQ/L (3.7-5.4); SAMPLE HEMOLYSIS CHECK 0; SAMPLE ICTERIC CHECK 0; SAMPLE LIPEMIA CHECK 0; SODIUM 140 MEQ/L (136-147); UREA NITROGEN (BUN) 14 mg/dL (9-23)
[2017-02-01 06:57] LABS: GLUCOSE 60 mg/dL (70-99)
[2017-02-01 08:49] VITALS: BP 146/88
[2017-02-01 11:42] VITALS: BP 138/79
[2017-02-01] MEDS ORDERED: VANCOCIN HCL125 MG PO ×2 (13:22→15:56)
[2017-02-01] MEDS ORDERED: ZOSYN 3.3753.375 GM IV (13:23)
[2017-02-01] MEDS ORDERED: FLORASTOR250 MG PO (13:24)
[2017-02-01] MEDS ORDERED: LEVEMIR100 UNIT/2 SC (13:24)
[2017-02-01] MEDS ORDERED: ELIQUIS5 MG PO (13:25)
[2017-02-01] MEDS ORDERED: ATORVASTATIN CA40 MG PO (13:25)
[2017-02-01] MEDS ORDERED: DUONEB 2.5-0.5 M3 ML AEROSOL (13:26)
[2017-02-01] MEDS ORDERED: CARDIZEM CD,CA240 MG PO (13:27)
[2017-02-01] MEDS ORDERED: ENDOCET 5-3251 EACH PO (13:27)
[2017-02-01] MEDS ORDERED: MUCINEX600 MG PO (13:27)
[2017-02-01] MEDS ORDERED: NOVOLOG PE100 UNITS/ SC (13:30)
[2017-02-01] MEDS ORDERED: CEFTRIAXONE2 G1 IM ×2 (13:45→15:50)
[2017-02-01] MEDS ORDERED: PEPCID20 MG PO (14:58)
[2017-02-01] MEDS ORDERED: ROCEPHIN2 GM/50 ML IV (15:54)
[2017-02-02 01:26] LABS: POINT-OF-CARE USER ID 608261316
== END 2017-02-01 21:35 | disposition designated cancer center or children's hospital (05) | DRG 853 ==
LOC: EME 13:37 → 4WEST 17:16 → 5SOUTH 17:16 → EDOF 17:16 → 4WEST 18:17 → 5SOUTH 01-23 16:08 → 4WEST 01-30 01:02 → 5SOUTH 01-30 19:55
PROVIDERS: Emergency Medicine; Hospitalist; Internal Medicine; Internal Medicine Nephrology; Internal Medicine Pulmonary Disease
PROC: 0BH17EZ Insertion of Endotracheal Airway into Trachea, Via Natural or Artificial Opening (ICD-10-PCS; principal; 2017-01-13)
PROC: 5A1955Z Respiratory Ventilation, Greater than 96 Consecutive Hours (ICD-10-PCS; principal; 2017-01-13)
PROC: 03HY32Z Insertion of Monitoring Device into Upper Artery, Percutaneous Approach (ICD-10-PCS; 2017-01-14)
PROC: 0B958ZX Drainage of Right Middle Lobe Bronchus, Via Natural or Artificial Opening Endoscopic, Diagnostic (ICD-10-PCS; 2017-01-14)
PROC: 02HV33Z Insertion of Infusion Device into Superior Vena Cava, Percutaneous Approach (ICD-10-PCS; 2017-01-14)
PROC: 0BBK8ZX Excision of Right Lung, Via Natural or Artificial Opening Endoscopic, Diagnostic (ICD-10-PCS; 2017-01-30)
DX: A41.59 Other Gram-negative sepsis (principal); R65.21 Severe sepsis with septic shock; J15.0 Pneumonia due to Klebsiella pneumoniae; G93.40 Encephalopathy, unspecified; J96.01 Acute respiratory failure with hypoxia; E87.2 Acidosis; I63.40 Cerebral infarction due to embolism of unspecified cerebral artery; G83.24 Monoplegia of upper limb affecting left nondominant side; A04.7 Enterocolitis due to Clostridium difficile; D47.3 Essential (hemorrhagic) thrombocythemia; E87.6 Hypokalemia; B00.1 Herpesviral vesicular dermatitis; I48.2 Chronic atrial fibrillation; D64.9 Anemia, unspecified; E83.42 Hypomagnesemia; E83.39 Other disorders of phosphorus metabolism; F11.10 Opioid abuse, uncomplicated; E11.9 Type 2 diabetes mellitus without complications; F32.9 Major depressive disorder, single episode, unspecified; F41.9 Anxiety disorder, unspecified; I10 Essential (primary) hypertension; I25.10 Atherosclerotic heart disease of native coronary artery without angina pectoris; I44.1 Atrioventricular block, second degree; J45.909 Unspecified asthma, uncomplicated; K21.9 Gastro-esophageal reflux disease without esophagitis; K29.70 Gastritis, unspecified, without bleeding; M19.90 Unspecified osteoarthritis, unspecified site; Z66 Do not resuscitate; Z87.891 Personal history of nicotine dependence; Z79.891 Long term (current) use of opiate analgesic
CPT/HCPCS: 36600; 70450; 70551; 71010; 71020; 71250; 74230; 80048; 80048 91; 80053; 80061; 81003; 82803; 82948; 83036; 83605; 83735; 84100; 84484; 84999; 85025; 85027; 85610; 85730; 87040; 87070; 87077; 87086; 87106; 87116; 87186; 87205; 87206; 87493; 87641; 87801; 92526 GN; 92610 GN; 92611 GN; 93005; 93306; 93880; 93970; 94002; 94003; 94640; 94640 76; 94667; 94668; 94760; 94799; 97530 GO; 97530 GP; 97532 GN; 99202; 99281; 99285; G0480; J0692; J0696; J1650; J1815; J2250; J2310; J2405; J2543; J2704; J2930; J3010; J3475; J7030; J7040; J7050; J7120; J7608; P9045; S0028; S0030